=== PATIENT | male | born 1945 | race Caucasian/White ===

== ENCOUNTER 2022-03-15 13:58 | Outpatient (CLI) | payer MEDICARE | END 2022-03-15 13:59 | disposition home or self-care (01) | LOC: CSHRAD 13:58 | PROVIDERS: ATTEND Family Medicine | DX: M54.6 Pain in thoracic spine (principal); M47.814 Spondylosis without myelopathy or radiculopathy, thoracic region | CPT/HCPCS: 72072 ==

== ENCOUNTER 2022-11-08 12:29 | Outpatient (CLI) | payer MEDICARE ==
[~2022-11-08 12:29] MED LIST: Iopamidol 370 76% 100 ML VIAL ONE
== END 2022-11-08 12:30 | disposition home or self-care (01) ==
LOC: CSHCT 12:29
PROVIDERS: ATTEND Internal Medicine Cardiovascular Disease
DX: Z01.810 Encounter for preprocedural cardiovascular examination (principal); I48.0 Paroxysmal atrial fibrillation; I51.3 Intracardiac thrombosis, not elsewhere classified; I31.39 Other pericardial effusion (noninflammatory); R59.1 Generalized enlarged lymph nodes; K44.9 Diaphragmatic hernia without obstruction or gangrene
CPT/HCPCS: 71275; 82565

== ENCOUNTER 2023-04-27 09:38 | Outpatient (CLI) | payer MEDICARE | END 2023-04-27 09:39 | disposition home or self-care (01) | LOC: CSHRAD 09:38 | PROVIDERS: ATTEND Family Medicine | DX: M79.671 Pain in right foot (principal); S93.401A Sprain of unspecified ligament of right ankle, initial encounter ==